=== PATIENT | male | born 1995 ===

== ENCOUNTER 2023-03-17 12:23 | Inpatient (IN) | payer SELFPAY ==
[2023-03-17] VITALS (9 sets, daily range): BP systolic 109–167; BP diastolic 58–95
[~2023-03-17] VITALS: Ht 167.6 cm; Wt 80.0 kg
[2023-03-17 13:16] LABS: BASO % 0.2 % (0.0-1.0); HEMATOCRIT 51.1 % (42.0-52.0); LYMPH # 1.4 10*3/uL (1.3-4.4); LYMPH % 11.5 % (27.0-41.0); MEAN CELL VOLUME 83.8 fl (80.0-94.0); MEAN CORPUSCULAR HGB 28.9 pg (27.0-31.0); MEAN CORPUSCULAR HGB CONC 34.4 g/dl (33.0-37.0); MEAN PLATELET VOLUME 9.6 fl (9.6-12.3); MONO # 0.7 10*3/uL (0.1-1.0); MONO % 5.5 % (3.0-9.0); NEUT # 9.9 10*3/uL (2.3-7.9); NEUT % 82.4 % (47.0-73.0); PLATELET COUNT AUTOMATED 241 10*3/uL (130-400); RED CELL DISTRI WIDTH 12.5 % (0-14.5)
[2023-03-17 13:27] LABS: ACT PARTIAL THROMBO TIME 28.8 SECONDS (20.0-32.1); INTERNATIONAL NORM RATIO 1.1 (2.0-3.5)
[2023-03-17 13:37] LABS: ALKALINE PHOSPHATASE 67 U/L (46-116); BUN 9 mg/dl (9-23); CHLORIDE 101 mmol/L (98-107); LIPASE 43 U/L (12-53); POTASSIUM 3.8 mmol/L (3.4-5.1); SGPT/ALT 34 U/L (10-49); TOTAL PROTEIN 8.2 gm/dL (6.0-8.0)
[2023-03-18] VITALS: BP 123/61
[2023-03-18 02:50] LABS: BILIRUBIN Negative (Negative); BLOOD 2+ (Negative); CLARITY Clear (Clear); COLOR Yellow (Yellow); GLUCOSE Negative (Negative); KETONE Negative (Negative); LEUKO ESTERASE Negative (Negative); NITRITE Negative (Negative); PH 5.5 (4.5-8.0); SPECIFIC GRAVITY 1.015 (1.001-1.030)
[2023-03-18 03:22] LABS: RBC 21-30 rbc/hpf (0-2)
[2023-03-18 07:04] LABS: BASO % 0.1 % (0.0-1.0); HEMATOCRIT 37.2 % (42.0-52.0); LYMPH # 0.6 10*3/uL (1.3-4.4); LYMPH % 5.2 % (27.0-41.0); MEAN CELL VOLUME 85.9 fl (80.0-94.0); MEAN CORPUSCULAR HGB 29.1 pg (27.0-31.0); MEAN CORPUSCULAR HGB CONC 33.9 g/dl (33.0-37.0); MEAN PLATELET VOLUME 9.5 fl (9.6-12.3); MONO % 8.1 % (3.0-9.0); NEUT # 10.2 10*3/uL (2.3-7.9); NEUT % 86.2 % (47.0-73.0); RED BLOOD COUNT 4.33 10*6/uL (4.50-5.90); RED CELL DISTRI WIDTH 12.8 % (0-14.5); WHITE BLOOD COUNT 11.8 10*3/uL (4.8-10.8)
[2023-03-18 07:08] LABS: PLATELET COUNT AUTOMATED 166 10*3/uL (130-400)
[2023-03-18 07:17] LABS: ALKALINE PHOSPHATASE 39 U/L (46-116); BUN 7 mg/dl (9-23); CHLORIDE 108 mmol/L (98-107); POTASSIUM 3.8 mmol/L (3.4-5.1); SGPT/ALT 22 U/L (10-49); TOTAL PROTEIN 5.9 gm/dL (6.0-8.0)
[2023-03-18 08:00] VITALS: BP 113/55
[2023-03-18] MEDS ORDERED: METRONIDAZOLE500 M1 PO (13:08)
[2023-03-18] MEDS ORDERED: COLACE100 MG PO (13:08)
[2023-03-18] MEDS ORDERED: LEVOFLOXACIN500 MG PO (13:08)
== END 2023-03-18 15:35 | disposition home or self-care (01) | DRG 854 ==
LOC: ED 12:23 → EDHOLD 17:30 → 4E 17:30 → 5E 19:53
PROVIDERS: Emergency Medicine; Family Medicine; Surgery; ADMIT Internal Medicine; ATTEND Internal Medicine
PROC: 0DTJ4ZZ Resection of Appendix, Percutaneous Endoscopic Approach (ICD-10-PCS; principal; 2023-03-17)
DX: A41.9 Sepsis, unspecified organism (principal); E87.20 Acidosis, unspecified; K35.30 Acute appendicitis with localized peritonitis, without perforation or gangrene; D72.9 Disorder of white blood cells, unspecified; K76.0 Fatty (change of) liver, not elsewhere classified; R73.9 Hyperglycemia, unspecified; Z83.3 Family history of diabetes mellitus; Z78.9 Other specified health status